=== PATIENT | male | born 1940 | race Caucasian/White ===

== ENCOUNTER 2018-08-06 13:54 | Outpatient (CLI) | payer MEDICARE ==
[~2018-08-06 13:54] MED LIST: Gadobenate Dimeglumine 529 MG/1 ML (20ML VIAL) ONE
--- NOTE | 2018-08-06 16:33 | MRI ---
[facility] Pelvis W WO Con History: [Prostate cancer. Radiation planning.] Comparison: None. Findings: Multiplanar multisequence MRI of the pelvis performed using prostate protocol. The exam was reviewed on a 3-D independent workstation. The large volume of gas within the rectal vault limits ev aluation of the prostate. Prostate measures 3.9 x 3 x 2.9 cm for a volume of 16.93 cc. Peripheral zone: There are no abnormal foci of diffusion restriction in the peripheral zone. Evidence of prior prostatitis with few areas of confluent T2 signal hypointensity. Transitional zone: No abnormal lentiform areas of T2 signal hyperintensity to suggest malignancy. Neurovascular bundles: Intact Seminal vesicles: Intact Prostatic capsule: Intact Lymph nodes: No adenopathy. Urinary bladder: Mildly trabeculated. No diverticulum. Intrapelvic soft tissues: Unremarkable. Bones: On the T1 weighted imaging sequence there are no abnormal areas of T1 signal replacement to mattson ggest metastatic disease. Impression: PI-RADS 2: Low (clinically significant prostate cancer is unlikely to be present).
== END 2018-08-06 13:55 | disposition home or self-care (01) ==
LOC: TBSIIMAG 13:54
PROVIDERS: ATTEND Radiology Radiation Oncology
DX: C61 Malignant neoplasm of prostate (principal)
CPT/HCPCS: 72197; 82565; A9577